=== PATIENT | male | born 1960 | race Hispanic/Latino ===

== ENCOUNTER 2016-08-26 09:25 | Emergency (ER) | payer SELFPAY ==
[2016-08-26 11:25] VITALS: BP 137/86
[2016-08-26] MEDS ORDERED: TORADOL IM ONE (12:29)
[2016-08-26] MEDS ORDERED: KEFLEX PO ONE (12:30)
[2016-08-26] MEDS ORDERED: BACTRIM DS PO ONE (12:30)
--- NOTE | 2016-08-26 12:52 | Emergency Department Report ---
HPI - General Chief Complaint: Skin/Abscess/Foreign Body - HPI HPI: The patient is a 56 yo male presents for evaluation of toe pain. The patient reports continuous severe toe pain for the past one day, throbbing in quality, 10/10 severity, exacerbated with ambulation. The patient has some to the toes, fever, drainage or discharge, paresthesias, motor deficit. ED Past Medical Hx - Past Medical History Previous Medical History?: No - Surgical History Past Surgical History?: No - Social History Smoking Status: Never Smoker Substance Use Type: None - Medications Home Medications: Home Medications Medication Instructions Recorded Confirmed Last Taken Type Acetaminophen/Codeine [Tylenol #3] 1 tab PO Q6H PRN #15 tab 08/26/16 Unknown Rx Cephalexin [Keflex] 500 mg PO Q6H #40 capsule 08/26/16 Unknown Rx Ibuprofen [Motrin] 800 mg PO Q8HR PRN #15 tablet 08/26/16 Unknown Rx Sulfamethoxazole/Trimethoprim 1 each PO BID #20 tablet 08/26/16 Unknown Rx [Bactrim DS TAB] ED Review of Systems ROS: Stated complaint: SPIDER BITE Other details as noted in HPI Constitutional: denies: fever ENT: denies: throat or neck pain Respiratory: denies: cough, shortness of breath Cardiovascular: denies: chest pain Endocrine: denies unexplained weight loss or gain Gastrointestinal: denies: abdominal pain, nausea Genitourinary: denies: dysuria Musculoskeletal: reports toe pain denies: leg swelling Skin: denies: rash Neurological: denies: headache Hematological/Lymphatic: denies: easy bleeding or easy bruising Psych: denies sadness or hopelessness Physical Exam - Physical Exam Vital Signs: Vital Signs 08/26/16 11:21 Temperature 97.9 F Pulse Rate 60 Respiratory 16 Rate Blood Pressure 137/86 O2 Sat by Pulse 100 Oximetry Physical Exam: General: well-nourished, well-developed, no acute distress Head: Normocephalic, atraumatic Eyes: normal sclera ENT: Mucous membranes are pink and moist Neck: trachea midline, neck supple, No neck stiffness, no cervical adenopathy Respiratory: Breath sounds equal bilaterally, no wheezing, rales, or rhonchi Cardio: S1 and S2 present, no murmurs, rubs, gallops, capillary refill is brisk Abdomen: Normoactive bowel sounds, soft abdomen, no rigidity, no guarding or rebound tenderness Chest WALL/Back: No tenderness to palpation of the chest wall, no CVA tenderness with percussion Musc: Right middle toe redness and tenderness to palpation present, No pitting edema Skin: No rash Neuro: no facial drooping, normal speech Psych: Normal affect ED Course Vital Signs 08/26/16 11:21 Temperature 97.9 F Pulse Rate 60 Respiratory 16 Rate Blood Pressure 137/86 O2 Sat by Pulse 100 Oximetry ED Medical Decision Making - Medical Decision Making Findings of exam are consistent with acute cellulitis. Patient given PO antibiotics here in the emergency department. Patient given IM Toradol pain medicine. On reevaluation patient reports that his pain significantly improved. Patient discharged with prescription for pain medicine. Critical care attestation.: If time is entered above; I have spent that time in minutes in the direct care of this critically ill patient, excluding procedure time. ED Disposition Clinical Impression: Cellulitis of toe of right foot Disposition: - TO HOME OR SELFCARE Is pt being admited?: No Does the pt Need Aspirin: No Condition: Stable Instructions: Cellulitis (ED) Prescriptions: Acetaminophen/Codeine [Tylenol #3] 1 tab PO Q6H PRN #15 tab PRN Reason: Pain Cephalexin [Keflex] 500 mg PO Q6H #40 capsule Ibuprofen [Motrin] 800 mg PO Q8HR PRN #15 tablet PRN Reason: Pain Sulfamethoxazole/Trimethoprim [Bactrim DS TAB] 1 each PO BID #20 tablet Referrals: PRIMARY CARE, [Primary Care Provider] - 3-5 Days Time of Disposition: 12:44
== END 2016-08-26 13:03 | disposition home or self-care (01) ==
LOC: ED 09:25
DX: L03.031 Cellulitis of right toe (principal)
CPT/HCPCS: 96372; 99282; J1885